=== PATIENT | male | born 1955 | race Caucasian/White ===

== ENCOUNTER 2021-08-29 18:58 | Outpatient (CLI) | payer BC, SELFPAY | END 2021-08-29 18:59 | disposition home or self-care (01) | LOC: AMB 09-07 12:54 | PROVIDERS: Visit Provider Emergency Medicine | DX: R55 Syncope and collapse (principal); R42 Dizziness and giddiness; R11.0 Nausea | CPT/HCPCS: A0425; A0427 ==